=== PATIENT | male | born 1940 | race Caucasian/White ===

== ENCOUNTER → 2017-01-08 | Outpatient (CLI) | payer OTHER ==
[~2017-01-08] MED LIST: REGADENOSON 0.4 MG/5 ML DISP.SYRIN. IV ONE
--- NOTE | 2017-01-08 13:16 | RAD ---
APPROVED REPORT Test Type: Pharmacological Stress Nurse/Tech: Carey Levy R.N. Test Indications: chest pain, fatigue Cardiac History: htn, dm Medications: see ehr Medical History: see ehr Resting ECG: sr Resting Heart Rate: 61 bpm Resting Blood Pressure: 131/56mmHg Pretest Chest Pain: No chest pain Nurse/Tech Notes lungs cta, heart tones regular, good radial pulse Consent: The procedure was explained to the patient in lay terms. Informed consent was witnessed. Manny eout was entered into [employer]. History and Stress Test performed by Carey Levy R.N. Pharm. Details Pharmacologic stress testing was performed using 0.4mg per 5ml of regadenoson given intravenously ove r 7-10 seconds. Stress Symptoms chest pressure, 7/10 throughout recovery, states at end pressure resolved POST EXERCISE Reason for Termination: Infusion complete Max HR: 98 bpm Max Blood Pressure: 131/66mmHg Chest Pain: Yes. Arrhythmia: No. ST Change: No. INTERPRETATION Stress EKG Conclusion: The resting EKG shows a sinus rhythm with an incomplete right bundle bundle br anch block and nonspecific ST segment changes. The stress EKG shows no significant changes from baseline. No EKG evidence of stress-induced ischemia. Imaging Protocol IMAGE PROTOCOL: Rest Tc-99m/stress Tc-99m 1 day Rest: Stress: Viability: Radiopharm.Tc99m [id number] Sestamibi Dose10.4mCi 34mCi Img Date 01/08/2017 01/08/2017 Inj-Img [id number]. 60min. Rest Admin Site:IV - Left AntecubitalAdministrator:Sonia Gentile, RT (R)(N) Stress Admin Site: IV - Left AntecubitalAdministrator: KATERINE Barahona, ARRT (R)(N) STRESS DATA End Diast. Vol.52.0mlAv. Heart Rate73.0bpm End Syst. Vol.5.0mlCO Index BSA0.0L/min Myocardial Cfmv324.0gEject. Ynyyctxm67.0% Stress Rates Pk. Fill Rate2.72EDV/secLVtime Pk. Fill 200.52msec Pk. Empty Rate4.78ESV/secLVtime Pk. Yrgws827.67msec /3 Pk. Fill0.78EDV/sec Stress Scores Regional WT2.00Summed WT9.00 Regional WM0.00Summed WM0.00 LV Perfusion The stress scans showed no significant defects. The rest scans showed no significant defects. Nuclear imaging shows no reversible ischemia or infarct. Wall Motion Normal left ventricular systolic function with an ejection fraction of greater than 70%. LV Perf. Quant 17 Seg. SSS0.00 17 Seg. SRS0.00 17 Seg. SDS0.00 Stress Defect Extent (% LAD)0.00Rest Defect Extent (% LAD)0.00Rev. Defect Extent (% LAD)0.00 Stress Defect Extent (% LCX) 0.00Rest Defect Extent (% LCX)0.00Rev. Defect Extent (% LCX)0.00 Stress Defect Extent (% RCA)0.00Rest Defect Extent (% RCA)0.00Rev. Defect Extent (% RCA)0.00 Stress Defect Extent (% JOSELYN)0.00Rest Defect Extent (% JOSELYN)0.00Rev. Defect Extent (% JOSELYN)0.00 Conclusion 1. No EKG evidence of stress-induced ischemia. 2. Nuclear imaging shows no reversible ischemia or infarct. 3. Normal left ventricular systolic function with an ejection fraction of greater than 70%. 4. Low risk Lexiscan nuclear stress test.
== END | disposition home or self-care (01) ==
LOC: NM 14:48
PROVIDERS: ATTEND Physician Assistant Medical
DX: I10 Essential (primary) hypertension (principal)
CPT/HCPCS: 78452; 93017; 96374; 96375; 96376; A9500; J2785

== ENCOUNTER → 2018-03-03 | Outpatient (CLI) | payer MEDICARE, OTHER | END | disposition home or self-care (01) | LOC: MRI 09:41 | DX: M50.123 Cervical disc disorder at C6-C7 level with radiculopathy (principal) | CPT/HCPCS: 72141 ==

== ENCOUNTER 2020-03-14 23:30 | Inpatient (IN) | payer MEDICARE, OTHER ==
[~2020-03-14] VITALS: Ht 160 cm; Wt 65.2 kg
[2020-03-14 23:35] VITALS: BP 151/85
[2020-03-15] VITALS (8 sets, daily range): BP systolic 146–172; BP diastolic 73–85
[2020-03-15] MEDS: IV NORMAL SALINE 1000ML BAG 1,000 ML IV SCH ×2 (01:28→14:20)
--- NOTE | 2020-03-15 05:00 | NUR ---
ADMIT NOTE The patient, VANESSA GREENBERG SR, 79 y/o, M admitted by MAKRO BARLOW MD, was given written information regarding hospital policies, unit procedures and contact persons. Patient arrived to unit via EMS from [facility] at approximately 2335 on 03/14/20. Patient A&O, afebrile with VSS and no c/o pain on admit to floor. Patient orientated to room, plan of care discussed, and allergies verified. All personal belongings were checked and left in room with patient. Patient now in bed, call light within reach, bed in lowest/locked position and no other needs voiced at this time.
[2020-03-15 05:18] LABS: CALCIUM 8.7 mg/dL (8.5-10.1); CREATININE 0.8 mg/dL (0.7-1.3); GFR 92.8; POTASSIUM 3.3 mmol/L (3.5-5.1)
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
[2020-03-15] MEDS ORDERED: ONDANSETRON PF 4 MG/2 ML VIAL. IVP PRN (08:45)
[2020-03-15] MEDS ORDERED: ACETAMINOPHEN 650 MG SUPP.RECT. PR PRN (08:45)
[2020-03-15] MEDS ORDERED: fentaNYL PF VIAL 100 MCG/2 ML VIAL IVP PRN (08:45)
[2020-03-15] MEDS ORDERED: DEXTROSE 50% 25 GM / 50ML DISP.SYRIN. IV PRN (08:45)
[2020-03-15] MEDS ORDERED: hydrALAZINE 20 MG/ML VIAL. IVP PRN (08:45)
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
[2020-03-15] MEDS: POTASSIUM CHLORIDE 10MEQ 100 ML IV SCH ×2 (09:00→10:46)
[2020-03-15] MEDS ORDERED: FLUTICASONE 50MCG/NASAL SPRAY 16GM BOTTLE. NS SCH (09:00)
[2020-03-15] MEDS ORDERED: ENOXAPARIN 40 MG/0.4 ML SYRINGE. SQ SCH ×2 (09:00→21:00)
--- NOTE | 2020-03-15 09:43 | PDOC4 ---
Operative Note Operative Note EGD with dilation Meds propofol per anesthesia Pre-op dx Dysphagia/hx esophageal stricture Post-op proximal stricture upper esophageal s/p dilation 18 mm dilation non-erosive gastritis Imp Dysphagia- s/p dilation Plan resume diet and release home if tolerates ITZEL DAVENPORT MD Mar 15, 2020 09:43
[2020-03-15] MEDS ORDERED: LEVOTHYROXINE SODIUM IVP ONE (10:00)
[2020-03-15] MEDS ORDERED: IV RINGERS,LACTATED 1000ML 1,000 ML IV SCH (10:00)
[2020-03-15] MEDS ORDERED: NORMAL SALINE IVP ONE (10:00)
--- NOTE | 2020-03-15 10:24 | NUR ---
SW following. Discussed with RN, pt from home with , gets around fine. Pt having a procedure today. RN advised no SW needs at this time. SW will continue to follow for any discharge planning needs. Addendum: 03/15/20 at 1614 by CHRISTA BURTON MICHEAL following. Discussed with RN, pt needing home health, especially for speech therapy. MICHEAL met with pt and pt's at bedside (no isolation precautions at the time), pt does not have a preference for home health provider. Pt choice of vendor form completed. SW awaiting discharge home health orders. Addendum: 03/15/20 at 1634 by CHRISTA BURTON MICHEAL faxed referral to [facility] after confirming they have a speech therapist. Awaiting acceptance decision. RN notified, pt can discharge home.
[2020-03-15] MEDS ORDERED: INSULIN LISPRO 300 UNITS/3 ML VIAL. SQ SCH (11:30)
[2020-03-15] MEDS ORDERED: IPRATROPIUM BROMIDE 0.06% NASAL SPRAY 15ML BOTTLE. NS SCH (12:00)
[2020-03-15] MEDS ORDERED: ACETAMINOPHEN 650 MG/20.3 ML SOLUTION. PEG ONE (13:30)
[2020-03-15] MEDS ORDERED: MAGNESIUM SULFATE 2GM 50 ML IV ONE (13:30)
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
[2020-03-15] MEDS ORDERED: ETAN50PE (16:13)
[2020-03-15] MEDS ORDERED: ALLO300T PO (16:13)
[2020-03-15] MEDS ORDERED: LEVO125T5 PO (16:13)
[2020-03-15] MEDS ORDERED: FENO54TA PO (16:14)
[2020-03-15] MEDS ORDERED: METF10007 PO (16:14)
[2020-03-15] MEDS ORDERED: LISI10TA2 PO (16:14)
[2020-03-15] MEDS ORDERED: GABA300C9 PO (16:14)
[2020-03-15] MEDS ORDERED: IPRA15SP NS (16:15)
[2020-03-15] MEDS ORDERED: FLUT16SP NS (16:15)
--- NOTE | 2020-03-15 16:17 | SNU/HH DC ---
DISCHARGE WITH HOME HEALTH DISCHARGE INFORMATION: Discharge Date: Mar 15, 2020 Final Diagnosis: Esophageal strictures Condition on Discharge: Stable CODE STATUS: Code Status: Full HOME HEALTH: Face to Face: I certify this patient is under my care and that I, or a nurse practitioner or physician's mailing machine assistant working with me, had a face to face encounter that meets the physician face to face encounter requirements with this patient on 03/15/2020. Medical Complications: DJD, DM, Falls, HTN, Other (Inclusion body myositis) RN For Eval/Treatment: Yes Physical Therapy For: Evalulation/Treatment Occupational Therapy For: Evaluation/Treatment Speech Language Pathology For: Evaluation/Treatment Home Health Aide For: Self-care Pt Meets Homebound Status: Unsteady balance w/ amb,, Fatigue w/ amb. POST DISCHARGE ORDERS: Activity Instructions for Disc: No restrictions Weight Bearing Status after Di: No restrictions DIET AFTER DISCHARGE: ADA CHECKS AFTER DISCHARGE: Checks after discharge: Check blood press - daily, Check blood sugar, ac/hs CERTIFICATION STATEMENT: Certification Statement: Certification Statement: Based on the above finding, I certify that this patient is confined to the home and needs intermittent usp care, physical therapy and/or speech therapy, or continues to need occupational therapy.~ This patient is under my care, and I have initiated the establishment of the plan of care.~ This patient will be followed by myself or a community physician who will periodically review the plan of care. Home Meds Active Scripts Fluticasone Propionate (FLUTICASONE PROPIONATE NASAL SPRAY) 16 Gm [place].susp, 2 SPRAY NS DAILY for Rhinitis for 30 Days, #2 SPRAY Prov:DAPHNE KING MD 03/15/20 Ipratropium [place] (IPRATROPIUM BROMIDE) 15 Ml [place], 2 SPRAY NS Q6HRS for Rhinitis for 30 Days, #2 SPRAY Prov:DAPHNE KING MD 03/15/20 Reported Medications Metformin Hcl (METFORMIN HCL) 1,000 Mg Tablet, 1000 MG PO BID for DM2 for 90 Days, #180 03/15/20 Gabapentin (Gabapentin) 300 Mg Capsule, 300 MG PO TID for neuropathy for 90 Days 03/15/20 Fenofibrate (FENOFIBRATE) 54 Mg Tablet, 54 MG PO DAILY for HLD for 30 Days, #30 03/15/20 Lisinopril (LISINOPRIL) 10 Mg Tablet, 15 MG PO DAILY for htn for 90 Days 03/15/20 Levothyroxine Sodium (LEVOTHYROXINE SODIUM) 125 Mcg Tablet, 125 MCG PO DAILY for hypothyroidism for 90 Days, #90 03/15/20 Allopurinol (ALLOPURINOL) 300 Mg Tablet, 300 MG PO DAILY for gout for 30 Days, #30 03/15/20 Etanercept (ENBREL) 50 Mg/1 Ml Pen.injctr 03/15/20 DAPHNE KING MD Mar 15, 2020 16:17
--- NOTE | 2020-03-15 17:08 | NUR ---
Pt. discharged to home, verbalized understanding of discharge instructions. Pt. given post-procedure EGD packet.
[2020-03-16] MEDS ORDERED: PANTOPRAZOLE IV PUSH 40 MG VIAL. IVP SCH (07:30)
== END 2020-03-15 18:30 | disposition home health service (06) | DRG 395 ==
LOC: 4 NORTH 23:30 → UNDOADMIN 23:59
PROVIDERS: ADMIT Internal Medicine; ATTEND Internal Medicine
PROC: 0D718ZZ Dilation of Upper Esophagus, Via Natural or Artificial Opening Endoscopic (ICD-10-PCS; principal; 2020-03-14)
DX: T18.198A Other foreign object in esophagus causing other injury, initial encounter (principal); K22.2 Esophageal obstruction; E03.9 Hypothyroidism, unspecified; G72.41 Inclusion body myositis [IBM]; E11.9 Type 2 diabetes mellitus without complications; K29.70 Gastritis, unspecified, without bleeding; E78.5 Hyperlipidemia, unspecified; E83.42 Hypomagnesemia; E87.6 Hypokalemia; X58.XXXA Exposure to other specified factors, initial encounter; I10 Essential (primary) hypertension; I25.10 Atherosclerotic heart disease of native coronary artery without angina pectoris; J39.8 Other specified diseases of upper respiratory tract; Z82.49 Family history of ischemic heart disease and other diseases of the circulatory system; Z90.49 Acquired absence of other specified parts of digestive tract; Z87.19 Personal history of other diseases of the digestive system; Z98.61 Coronary angioplasty status; Y93.89 Activity, other specified; Y92.89 Other specified places as the place of occurrence of the external cause; Y99.8 Other external cause status; Z88.8 Allergy status to other drugs, medicaments and biological substances; Z79.899 Other long term (current) drug therapy; Z88.2 Allergy status to sulfonamides
CPT/HCPCS: 36415; 43233; 80048; 82962; 83735; J1815; J3475; J3480; J3490; J7030; J7120; G0378

== ENCOUNTER 2020-05-08 09:19 | Inpatient (IN) | payer MEDICARE, OTHER ==
[2020-05-08] VITALS (15 sets, daily range): BP systolic 130–182; BP diastolic 69–88
[~2020-05-08] VITALS: Ht 160 cm; Wt 62.5 kg
[~2020-05-08 09:19] MED LIST changes: +ALLO300T PO; +ETAN50PE; +FENO54TA PO; +FLUT16SP NS; +GABA300C9 PO; +IPRA15SP NS; +LEVO125T5 PO; +LISI10TA2 PO; +METF10007 PO; -REGADENOSON 0.4 MG/5 ML DISP.SYRIN. IV ONE
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
--- NOTE | 2020-05-08 11:34 | HP ---
ADMIT DATE: 05/08/2020 HISTORY OF PRESENT ILLNESS: The patient is an 80-year-old male patient, who presented to the Emergency Room of [facility] for evaluation of moderate headache after hitting the back of his head and injuring his neck. The patient is chronically unsteady on his feet. He had a mechanical fall where he fell backward. The patient states it is not unusual that he would have a fall. No other obvious injuries reported. The patient is diabetic and has prior cardiac history. He was lucid, awake and appropriate. There is no focal deficit or lateralizing sign. He was brought by the emergency medical service personnel for evaluation. He was extensively investigated in the Emergency Room. His CT scan of the head and cervical spine showed that the patient has a small parafalcine subdural hemorrhage. He has also degenerative changes of cervical spine without a definite acute fracture or dislocation; and therefore, Dr. Oneal, the neurosurgeon, was contacted and he recommended admitting him to ICU of [facility] for close monitoring and further evaluation. When I saw him, he continued to complain of pain in the back of his head, but denied any other complaints, in particular denied any blurring of vision, denied any tingling or numbness, denied any lateralizing sign. PAST MEDICAL HISTORY: Significant for coronary artery disease, status post angioplasty, type 2 diabetes, hypothyroidism, hypertension, inclusion body myositis; on Enbrel. PAST SURGICAL HISTORY: Significant for hemorrhoidectomy, colon polyp removal. He has also bilateral cataract extraction, tonsillectomy and adenoidectomy, cholecystectomy, partial colectomy for colonic polyps and ERCP for extraction of common bile duct stones. FAMILY HISTORY: He has 2 brothers, both younger and have heart disease. One older sister of myocardial infarction. One brother, older, of a stroke. His father in his 40's; he does not know the cause of his . His mother at the age of 75 because of complication of severe peripheral vascular disease. SOCIAL HISTORY: He is , has 1 son and 2 daughters. He never smoked. He does not drink alcohol or use any recreational drugs. He is a ; was there from [id number]; however, after that he worked in many other places in [place] as well as in [place], [place]. REVIEW OF SYSTEMS: The patient denied any blurring of vision. He had bilateral cataract extraction, but denied any glaucoma or macular degeneration. He denied any earache, tinnitus, or sensorineural deafness. Denied any nosebleeds, stuffy nose, or postnasal drip. Denied any sore throat, sore tongue, toothache, hoarseness of voice. He did complain of swelling, difficulty swallowing, particularly to solids. He actually was weighing 201 pounds in 2016 and yesterday his weight was down to 139. He denied any nausea, vomiting, diarrhea, or constipation. He denied any hematemesis, melena, or hematochezia. Denied any dysuria, frequency, or hematuria. Denied any chest pain, shortness of breath, orthopnea, or paroxysmal nocturnal dyspnea. Denied any cough, phlegm, or hemoptysis. PHYSICAL EXAMINATION: GENERAL: On arrival to the Emergency Room of [facility], he looked well and was clearly in no apparent respiratory distress, pale, but no jaundice, cyanosis or thyromegaly. No jugular venous distention. No lower limb edema. VITAL SIGNS: His heart rate was 67, blood pressure was 137/74, temperature was 98.4, respiratory rate was 20, and oxygen saturation was 97% on room air. HEAD, EYES, EARS, NOSE, AND THROAT: Showed normocephalic, atraumatic. NECK: Supple. HEART: Showed normal first and second heart sounds. No gallop or murmur. CHEST: Clear to auscultation. No crepitation or rhonchi. ABDOMEN: Distended, soft, nontender. NEUROLOGIC: He was awake, alert; oriented to time, place, and person. All his cranial nerves are intact. EXTREMITIES: He moves extremities without difficulty. LABORATORY DATA: While in the Emergency Room, his lab work showed a white cell count 4200; hemoglobin 11.6; hematocrit 35.7; MCV 94 and platelet count of 115,000. His chemistry showed a serum sodium 143, potassium 4, chloride 107, bicarbonate 26, anion gap of 10, BUN 21, creatinine 1.1, estimated GFR was 64 mL per minute, his glucose 143, calcium was 9. Total bilirubin, AST, ALT, alkaline phosphatase were normal. Total protein 6.6, albumin 3.3. His prothrombin time, INR and aPTT are all normal. Urinalysis essentially unremarkable. He has had a CT scan of the head and cervical spine and CT scan of the head showed that he has left parafalcine small subdural hemorrhage measuring approximately 4-5 mm scattered regions of low density within the white matter, prominence of the ventricles and sulci, which can be seen with age-related volume loss. No midline shift. Suprasellar cistern is not affected. Small fluid in the right maxillary sinuses. His cervical spine CT scan showed degenerative changes throughout the cervical spine with osteophyte formation at the vertebral body endplates as well as uncovertebral facet and hypertrophy with multilevel central canal and neural foraminal stenosis, moderate compression fracture at T3 and T4. This was also present on prior lucent lesion at the skull base adjacent to the cerebellum. This was present on prior as well. Calcified atherosclerosis. A definite acute fracture line is not seen. He has also a 4-mm right upper lung nodule. The patient therefore was transferred to [facility] ICU as per neurosurgeon's recommendation for close monitoring and to repeat his CT scans to assure stability. EDVIN RAMIREZ MD DR: AMANDA/kristi JOB#: [id number] / [id number]
[2020-05-08] MEDS ORDERED: FOLI0.4T2 PO (14:03)
[2020-05-08] MEDS ORDERED: GABA300C18 PO (14:03)
[2020-05-08] MEDS ORDERED: OMEP40CA45 PO (14:03)
[2020-05-08] MEDS ORDERED: AMLO5TAB10 PO (14:11)
[2020-05-08] MEDS ORDERED: CHOL500021 PO (14:11)
[2020-05-08] MEDS ORDERED: ASPI-630 PO (14:11)
[2020-05-08] MEDS ORDERED: ACET500T68 PO (14:11)
--- NOTE | 2020-05-08 16:18 | RAD ---
CT HEAD WITHOUT CONTRAST 05/08/2020 3:50 PM Indication: Reason: F/U SDH / Spl. Instructions: / History: Comparison: CT of the without contrast earlier same day performed at [facility] Procedure: Multidetector CT imaging of the head was performed without the administration of contrast. Findings: The left parafalcine subdural hematoma is essentially unchanged. No significant increase is identified. No new intracranial hemorrhage is identified. No new mass effect or midline shift is seen. The ventricles and basilar cisterns have normal configuration. Mild intracranial vascular calcification noted. No acute osseous changes are seen. IMPRESSION: Grossly stable appearance of small left parafalcine subdural hematoma CT DOSING PQRS STATEMENT: One or more of the following individualized dose reduction techniques were utilized for this examination: 1. Automated exposure control 2. Adjustment of the mA and/or kV according to patient size 3. Use of iterative reconstruction technique Electronically signed by: Keven De La Vega MD (05/08/2020 4:15 PM) [id number]
[2020-05-08] MEDS: metFORMIN 500 MG TABLET PO SCH (18:27)
[2020-05-08] MEDS: IPRATROPIUM BROMIDE 0.06% NASAL SPRAY 15ML BOTTLE. NS SCH ×2 (18:36→23:33)
[2020-05-08] MEDS: GABAPENTIN 300 MG CAPSULE. PO SCH (20:51)
[2020-05-08] MEDS: ACETAMINOPHEN 500 MG TABLET PO PRN (20:51)
--- NOTE | 2020-05-08 23:23 | NUR ---
Notified about high B/P. He wants me to give Amlodipine now and give it 2-3 hrs to take affect.
[2020-05-08] MEDS ORDERED: amLODIPine BESYLATE 5 MG TABLET PO ONE (23:30)
[2020-05-09] VITALS (11 sets, daily range): BP systolic 125–180; BP diastolic 69–85
[2020-05-09 05:59] LABS: HEMATOCRIT 35.6 % (39.0-53.0); HEMOGLOBIN 11.8 g/dL (13.0-17.5); RED BLOOD COUNT 3.85 x10^6/uL (4.30-5.70); RED CELL DISTRIBUTION WIDTH 15.9 % (11.5-14.5); WHITE BLOOD COUNT 4.1 x10^3/uL (4.0-11.0)
[2020-05-09] MEDS: IPRATROPIUM BROMIDE 0.06% NASAL SPRAY 15ML BOTTLE. NS SCH ×3 (06:09→18:00)
[2020-05-09] MEDS: LEVOTHYROXINE 112 MCG TABLET PO SCH (06:09)
[2020-05-09 06:16] LABS: ALBUMIN 3.1 g/dL (3.4-5.0); CALCIUM 8.6 mg/dL (8.5-10.1); CREATININE 0.7 mg/dL (0.7-1.3); POTASSIUM 3.6 mmol/L (3.5-5.1); TOTAL BILIRUBIN 0.2 mg/dL (0.2-1.0); TOTAL PROTEIN 6.2 g/dL (6.4-8.2)
[2020-05-09] MEDS: FENOFIBRATE 54 MG TABLET. PO SCH (08:03)
[2020-05-09] MEDS: CHOLECALCIFEROL (VITAMIN D3) 1,000 UNIT TABLET PO SCH (08:04)
[2020-05-09] MEDS: ALLOPURINOL 300 MG TABLET. PO SCH (08:04)
[2020-05-09] MEDS: metFORMIN 500 MG TABLET PO SCH ×2 (08:04→17:34)
[2020-05-09] MEDS: PANTOPRAZOLE 40 MG TABLET.DR. PO SCH (08:05)
[2020-05-09] MEDS: FLUTICASONE 50MCG/NASAL SPRAY 16GM BOTTLE. NS SCH (08:05)
[2020-05-09] MEDS: GABAPENTIN 300 MG CAPSULE. PO SCH ×3 (08:05→21:00)
[2020-05-09] MEDS: FOLIC ACID 1 MG TABLET. PO SCH (08:05)
[2020-05-09] MEDS: amLODIPine BESYLATE 5 MG TABLET PO SCH (08:05)
[2020-05-09] MEDS ORDERED: ASPIRIN CHEWABLE 81 MG TABLET. PO SCH (09:00)
--- NOTE | 2020-05-09 09:14 | PN ---
DATE: 05/09/2020 SUBJECTIVE: The patient is resting, slightly propped up in his recliner, sleeping comfortably. On questioning him, he denied any complaint. Nursing staff did not voice any concerns that he had an uneventful night. He has had his CT scan repeated yesterday showed that he has stable appearance with small left parafalcine subdural hematoma. All his medication were resumed and he was started also on his regular diet. He seemed to be stable and therefore, the patient will be transferred to the floor. We will start the process of physical and occupational therapy. PHYSICAL EXAMINATION: GENERAL: When I saw him this morning, he looked well and was clearly in no apparent respiratory distress, somewhat pale, no jaundice, cyanosis or thyromegaly. No jugular venous distention or limb edema. VITAL SIGNS: Her heart rate was 65, blood pressure 153/77, temperature was 98.2, respiratory rate was 17 and oxygen saturation was 99%. HEAD, EYES, EARS, NOSE AND THROAT: Normocephalic, atraumatic. NECK: Supple. HEART: Showed normal first and second heart sounds. No gallop or murmur. CHEST: Clear to auscultation. No crepitation or rhonchi. ABDOMEN: Distended, soft, nontender. NEUROLOGIC: He was sleepy, but arousable, responds appropriately. All his cranial nerves are intact. He moves extremities without difficulty, ambulates with assistance. His intake and output are incompletely recorded. LABORATORY DATA: Her lab work this morning showed a white cell count 4000, hemoglobin 12, hematocrit 36, MCV 92, and platelet count of 112,000. His chemistry showed a serum sodium 143, potassium 3.6, chloride 108, bicarbonate 30, anion gap of 5, BUN 15, creatinine 0.7, estimated GFR was 180 mL per minute. His glucose was 91, calcium was 8.6. Total bilirubin, AST, ALT, alkaline phosphatase were normal. Total protein 6.2, albumin 3.1. ASSESSMENT: 1. Fall with resultant supple sign to keep subdural hematoma that has been stable. 2. The patient has multiple other medical problems including: A. Inclusion body myositis. B. Coronary artery disease, status post angioplasty. C. Type 2 diabetes mellitus. D. Hypothyroidism. E. Hypertension. F. Dysphagia. PLAN: To obviously continue with all his medication except aspirin and we will transfer him to the floor, start the process of physical and occupational therapy. EDVIN RAMIREZ MD DR: AMANDA/kristi JOB#: [id number] / [id number]
[2020-05-09] MEDS: ACETAMINOPHEN 500 MG TABLET PO PRN (12:09)
--- NOTE | 2020-05-09 13:23 | NUR ---
SS following for discharge planning. SS reviewed pt chart and discussed with pt RN. Pt is currently on room air. PT/OT ordered. Pt transferring up today. SS will continue to follow for discharge planning.
--- NOTE | 2020-05-09 13:42 | PDOC ---
PROGRESS NOTES Date of Service DATE: 05/09/20 TIME: 13:39 Subjective Subjective up in chair denies headache currently Objective Objective Vital Signs Date Time Temp Pulse Resp B/P (MAP) Pulse Ox O2 Delivery O2 Flow Rate FiO2 05/09/20 11:18 97.6 70 18 154/69 (97) 96 Room Air 97.6 Intake and Output 05/09/20 07:00 Intake Total 270 ml Output Total 2450 ml Balance -2180 ml Intake Oral 270 ml Output Urine Total 2450 ml # Voids 7 # Bowel Movements 1 Physical Exam General: Alert, Oriented X3, Cooperative, No acute distress MUSCULOSKELETAL: Other (NYE) Neuro: Normal speech Plan Plan of Care small left parafalcine subdural hematoma- stable will make arrangements for f/u CT Head in 7 to 10 days d/w RN Comment Review of Relevant I have reviewed the following items lilli (where applicable) has been applied. Labs Laboratory Tests Test 05/09/20 05:10 White Blood Count 4.1 x10^3/uL (4.0-11.0) Red Blood Count 3.85 x10^6/uL (4.30-5.70) Hemoglobin 11.8 g/dL (13.0-17.5) Hematocrit 35.6 % (39.0-53.0) Mean Corpuscular Volume 92 fL (79-100) Mean Corpuscular Hemoglobin 31 pg (25-35) Mean Corpuscular Hemoglobin Concent 33 g/dL (31-37) Red Cell Distribution Width 15.9 % (11.5-14.5) Platelet Count 112 x10^3/uL (140-400) Sodium Level 143 mmol/L (136-145) Potassium Level 3.6 mmol/L (3.5-5.1) Chloride Level 108 mmol/L (98-107) Carbon Dioxide Level 30 mmol/L (21-32) Anion Gap 5 (6-14) Blood Urea Nitrogen 15 mg/dL (8-26) Creatinine 0.7 mg/dL (0.7-1.3) Estimated GFR (Cockcroft-Gault) 108.0 BUN/Creatinine Ratio 21 (6-20) Glucose Level 91 mg/dL (70-99) Calcium Level 8.6 mg/dL (8.5-10.1) Total Bilirubin 0.2 mg/dL (0.2-1.0) Aspartate Amino Transf (AST/SGOT) 27 U/L (15-37) Alanine Aminotransferase (ALT/SGPT) 47 U/L (16-63) Alkaline Phosphatase 64 U/L (46-116) Total Protein 6.2 g/dL (6.4-8.2) Albumin 3.1 g/dL (3.4-5.0) Albumin/Globulin Ratio 1.0 (1.0-1.7) Laboratory Tests Test 05/09/20 05:10 White Blood Count 4.1 x10^3/uL (4.0-11.0) Red Blood Count 3.85 x10^6/uL (4.30-5.70) Hemoglobin 11.8 g/dL (13.0-17.5) Hematocrit 35.6 % (39.0-53.0) Mean Corpuscular Volume 92 fL (79-100) Mean Corpuscular Hemoglobin 31 pg (25-35) Mean Corpuscular Hemoglobin Concent 33 g/dL (31-37) Red Cell Distribution Width 15.9 % (11.5-14.5) Platelet Count 112 x10^3/uL (140-400) Sodium Level 143 mmol/L (136-145) Potassium Level 3.6 mmol/L (3.5-5.1) Chloride Level 108 mmol/L (98-107) Carbon Dioxide Level 30 mmol/L (21-32) Anion Gap 5 (6-14) Blood Urea Nitrogen 15 mg/dL (8-26) Creatinine 0.7 mg/dL (0.7-1.3) Estimated GFR (Cockcroft-Gault) 108.0 BUN/Creatinine Ratio 21 (6-20) Glucose Level 91 mg/dL (70-99) Calcium Level 8.6 mg/dL (8.5-10.1) Total Bilirubin 0.2 mg/dL (0.2-1.0) Aspartate Amino Transf (AST/SGOT) 27 U/L (15-37) Alanine Aminotransferase (ALT/SGPT) 47 U/L (16-63) Alkaline Phosphatase 64 U/L (46-116) Total Protein 6.2 g/dL (6.4-8.2) Albumin 3.1 g/dL (3.4-5.0) Albumin/Globulin Ratio 1.0 (1.0-1.7) Medications Current Medications Acetaminophen (Tylenol) 500 mg PRN Q6HRS PRN PO PAIN Last administered on 05/09/20 12:09; Start 05/08/20 at 18:15 Allopurinol (Zyloprim) 300 mg DAILY PO Last administered on 05/09/20 08:04; Start 05/09/20 at 09:00 Amlodipine Besylate (Norvasc) 5 mg DAILY PO Last administered on 05/09/20at 08:05; Start 05/09/20 at 09:00 Aspirin (Aspirin Chewable) 81 mg DAILY PO ; Start 05/09/20 at 09:00; Stop 05/09/20 at 08:02; Status DC Fenofibrate (Lofibra) 54 mg DAILY PO Last administered on 05/09/20 08:03; Start 05/09/20 at 09:00 Fluticasone Propionate (Flonase) 2 spray DAILY NS Last administered on 05/09/20 08:05; Start 05/09/20 at 09:00 Gabapentin (Neurontin) 300 mg BID92 PO Last administered on 05/09/20 08:05; Start 05/09/20 at 09:00 Gabapentin (Neurontin) 900 mg HS PO Last administered on 05/08/20at 20:51; Start 05/08/20 at 21:00 Ipratropium [place] (Atrovent Nasal) 2 spray Q6HRS NS Last administered on 05/09/20 12:09; Start 05/08/20 at 19:00 Levothyroxine Sodium (Synthroid) 112 mcg DAILY06 PO Last administered on 05/09/20at 06:09; Start 05/09/20 at 06:00 Vitamin D (Vitamin D3) 2,000 unit DAILY PO Last administered on 05/09/20 08:04; Start 05/09/20 at 09:00 Non-Formulary Medication (Etanercept (Enbrel)) 50 unit WEEKLY .ROUTE ; Start 05/15/20 at 09:00; Status UNV Folic Acid (Folic Acid) 1 mg DAILY PO Last administered on 05/09/20at 08:05; S tart 05/09/20 at 09:00 Metformin HCl (Glucophage) 500 mg BIDWMEALS PO Last administered on 8/18/20at 08:04; Start 05/08/20 at 18:30 Pantoprazole Sodium (Protonix) 40 mg DAILYAC PO Last administered on 05/09/20at 08:05; Start 05/09/20 at 07:30 Amlodipine Besylate (Norvasc) 5 mg 1X ONCE PO Last administered on 05/08/20at 23:32; Start 05/08/20 at 23:30; Stop 05/08/20 at 23:31; Status DC Active Scripts Active Fluticasone Propionate Nasal [place] (Fluticasone Propionate) 16 Gm [place].susp 2 [place] NS DAILY 30 Days Ipratropium [place] 15 Ml [place] 2 [place] NS Q6HRS 30 Days Reported Aspirin 81 Mg Tab.chew 1 Tab PO DAILY D3-50 (Cholecalciferol (Vitamin D3)) 50,000 Unit Capsule 2,000 Unit PO DAILY Acetaminophen 500 Mg Tablet 500 Mg PO PRN PRN Amlodipine Besylate 5 Mg Tablet 5 Mg PO DAILY Folic Acid 0.4 Mg Tablet 1 Mg PO DAILY Omeprazole 40 Mg Capsule.dr 1 Cap PO DAILY Gabapentin 300 Mg Capsule 900 Mg PO HS Metformin Hcl 1,000 Mg Tablet 500 Mg PO BID 90 Days Gabapentin 300 Mg Capsule 300 Mg PO BID 90 Days Fenofibrate 54 Mg Tablet 54 Mg PO DAILY 30 Days Levothyroxine Sodium 125 Mcg Tablet 112 Mcg PO DAILY 90 Days Allopurinol 300 Mg Tablet 300 Mg PO DAILY 30 Days Enbrel (Etanercept) 50 Mg/1 Ml Pen.injctr 50 WEEKLY give weekly every Friday Vitals/I & O Vital Sign - Last 24 Hours 05/08/20 05/08/20 05/08/20 05/08/20 14:30 15:30 16:02 16:29 Pulse 68 68 64 B/P (MAP) 156/81 (106) 133/80 (97) 168/78 (108) Pulse Ox 98 98 O2 Delivery Room Air Room Air Room Air Room Air 05/08/20 05/08/20 05/08/20 05/08/20 17:32 18:14 18:24 19:00 Temp 97.9 97.9 Pulse 77 76 Resp 18 B/P (MAP) 151/76 (101) 158/88 (111) 132/69 (90) Pulse Ox 98 97 O2 Delivery Room Air Room Air Room Air 05/08/20 05/08/20 05/08/20 05/08/20 20:00 20:05 21:00 22:00 Temp 98.3 98.3 Pulse 70 72 71 Resp 18 17 17 B/P (MAP) 133/75 (94) 130/71 (90) 160/80 (106) Pulse Ox 97 98 97 O2 Delivery Room Air Room Air Room Air Room Air 05/08/20 05/08/20 05/09/20 05/09/20 23:00 23:32 00:09 01:08 Pulse 86 86 70 Resp 19 17 B/P (MAP) 182/82 (115) 182/82 180/82 (114) Pulse Ox 97 97 O2 Delivery Room Air Room Air Room Air 05/09/20 05/09/20 05/09/20 05/09/20 02:00 03:07 04:13 04:14 Temp 98.2 98.2 Pulse 75 68 67 Resp 18 18 18 B/P (MAP) 167/77 (107) 137/79 (98) 147/81 (103) Pulse Ox 98 97 98 O2 Delivery Room Air Room Air Room Air Room Air 05/09/20 05/09/20 05/09/20 05/09/20 05:11 06:10 07:34 08:05 Pulse 66 62 65 70 Resp 18 17 17 B/P (MAP) 125/69 (87) 131/71 (91) 153/77 (102) 149/98 Pulse Ox 98 97 99 O2 Delivery Room Air Room Air Room Air 05/09/20 05/09/20 08:30 11:18 Temp 97.6 97.6 Pulse 70 Resp 18 B/P (MAP) 154/69 (97) Pulse Ox 96 O2 Delivery Room Air Room Air Intake and Output 05/08/20 05/08/20 05/09/20 15:00 23:00 07:00 Intake Total 150 ml 120 ml Output Total 1550 ml 450 ml 450 ml Balance -1550 ml -300 ml -330 ml Justicifation of Admission Dx: Justifications for Admission: Justification of Admission Dx: Yes DAMIAN PARK MACHINE BURRER May 09, 2020 13:42
[2020-05-10] MEDS: IPRATROPIUM BROMIDE 0.06% NASAL SPRAY 15ML BOTTLE. NS SCH ×2 (00:17→06:12)
[2020-05-10 03:00] VITALS: BP 138/70
[2020-05-10] MEDS: LEVOTHYROXINE 112 MCG TABLET PO SCH (06:11)
[2020-05-10 07:16] VITALS: BP 146/71
[2020-05-10] MEDS: PANTOPRAZOLE 40 MG TABLET.DR. PO SCH (08:41)
[2020-05-10] MEDS: FENOFIBRATE 54 MG TABLET. PO SCH (08:41)
[2020-05-10] MEDS: metFORMIN 500 MG TABLET PO SCH (08:41)
[2020-05-10] MEDS: GABAPENTIN 300 MG CAPSULE. PO SCH ×2 (08:41→08:43)
[2020-05-10] MEDS: CHOLECALCIFEROL (VITAMIN D3) 1,000 UNIT TABLET PO SCH (08:41)
[2020-05-10] MEDS: amLODIPine BESYLATE 5 MG TABLET PO SCH (08:42)
[2020-05-10] MEDS: FLUTICASONE 50MCG/NASAL SPRAY 16GM BOTTLE. NS SCH (08:42)
[2020-05-10] MEDS: FOLIC ACID 1 MG TABLET. PO SCH (08:42)
[2020-05-10] MEDS: ALLOPURINOL 300 MG TABLET. PO SCH (08:42)
[2020-05-10] MEDS ORDERED: FLUT9.9S NS (08:57)
--- NOTE | 2020-05-10 09:03 | SNU/HH DC ---
DISCHARGE WITH HOME HEALTH DISCHARGE INFORMATION: Discharge Date: May 10, 2020 Final Diagnosis: subdural hematoma Inclusion Body Myositis Condition on Discharge: Stable HOME HEALTH: Face to Face: I certify this patient is under my care and that I, or a nurse practitioner or physician's assistant casino shift manager working with me, had a face to face encounter that meets the physician face to face encounter requirements with this patient on 05/10/2020 Medical Complications: Other RN For Eval/Treatment: Yes Physical Therapy For: Evalulation/Treatment Occupational Therapy For: Evaluation/Treatment Pt Meets Homebound Status: Extreme weakness w/ amb. POST DISCHARGE ORDERS: Activity Instructions for Disc: Activity as tolerated Weight Bearing Status after Di: No restrictions DIET AFTER DISCHARGE: ADA CHECKS AFTER DISCHARGE: Checks after discharge: Check blood press - daily, Check blood sugar, ac/hs TREATMENT/EQUIPMENT ORDERS: Adaptive Equipment Issued: None CERTIFICATION STATEMENT: Certification Statement: Certification Statement: Based on the above finding, I certify that this patient is confined to the home and needs intermittent correction care, physical therapy and/or speech therapy, or continues to need occupational therapy.~ This patient is under my care, and I have initiated the establishment of the plan of care.~ This patient will be followed by myself or a community physician who will periodically review the plan of care. Home Meds Active Scripts Fluticasone Propionate (Flonase Allergy Relief) 9.9 Ml [place].susp, 2 SPRAYS NS DAILY for allergy for 30 Days, #1 BOTTLE 5 Refills Prov:EDVIN RAMIREZ MD 05/10/20 Fluticasone Propionate (FLUTICASONE PROPIONATE NASAL SPRAY) 16 Gm [place].susp, 2 SPRAY NS DAILY for Rhinitis for 30 Days, #2 SPRAY Prov:DAPHNE KING MD 03/15/20 Ipratropium [place] (IPRATROPIUM BROMIDE) 15 Ml [place], 2 SPRAY NS Q6HRS for Rhinitis for 30 Days, #2 SPRAY Prov:DAPHNE KING MD 03/15/20 Reported Medications Aspirin (ASPIRIN) 81 Mg Tab.chew, 1 TAB PO DAILY for other, #30 TAB 3 Refills 05/08/20 Cholecalciferol (Vitamin D3) (D3-50) 50,000 Unit Capsule, 2000 UNIT PO DAILY for heart health, CAP 05/08/20 Acetaminophen (ACETAMINOPHEN) 500 Mg Tablet, 500 MG PO PRN PRN for PAIN, TAB 05/08/20 Amlodipine Besylate (AMLODIPINE BESYLATE) 5 Mg Tablet, 5 MG PO DAILY for blood pressure, TAB 05/08/20 Folic Acid (FOLIC ACID) 0.4 Mg Tablet, 1 MG PO DAILY for anemia, TAB 05/08/20 Omeprazole (OMEPRAZOLE) 40 Mg Capsule.dr, 1 CAP PO DAILY for acid reflux, #30 CAP 3 Refills 05/08/20 Gabapentin (GABAPENTIN) 300 Mg Capsule, 900 MG PO HS for NEUROGENIC PAIN, CAP 05/08/20 Metformin Hcl (METFORMIN HCL) 1,000 Mg Tablet, 500 MG PO BID for DM2 for 90 Days, #180 03/15/20 Gabapentin (Gabapentin) 300 Mg Capsule, 300 MG PO BID for neuropathy for 90 Days 03/15/20 Fenofibrate (FENOFIBRATE) 54 Mg Tablet, 54 MG PO DAILY for HLD for 30 Days, #30 03/15/20 Levothyroxine Sodium (LEVOTHYROXINE SODIUM) 125 Mcg Tablet, 112 MCG PO DAILY for hypothyroidism for 90 Days, #90 03/15/20 Allopurinol (ALLOPURINOL) 300 Mg Tablet, 300 MG PO DAILY for gout for 30 Days, #30 03/15/20 Etanercept (ENBREL) 50 Mg/1 Ml Pen.injctr, 50 WEEKLY for arthritis give weekly every Friday03/15/20 EDVIN RAMIREZ MD May 10, 2020 09:03
--- NOTE | 2020-05-10 09:34 | DS ---
DATE OF DISCHARGE: 05/10/2020 HOSPITAL COURSE: The patient was admitted after he fell sustaining a stable small left parafalcine subdural hematoma. He was seen by the neurosurgical team who did not recommend any surgical intervention and therefore, a decision was made to discharge him home to follow up with the neurosurgical team with a CT scan of the head in 7-10 days. PHYSICAL EXAMINATION: GENERAL: When I saw him today, he was sitting in his chair, eating his breakfast comfortably. On questioning him, he denied any complaint. The nursing staff did not voice any concerns that he has an eventful night. When I examined him, he looked well and was clearly in no apparent respiratory distress, pale, but no jaundice, cyanosis or thyromegaly. No jugular venous distention. No limb edema. VITAL SIGNS: His heart rate was 68, blood pressure 146/71, temperature was 97.6, respiratory rate was 21 and oxygen saturation was 94%. HEAD, EYES, EARS, NOSE AND THROAT: Showed normocephalic, atraumatic. NECK: Supple. HEART: Normal first and second heart sounds. No gallop or murmur. CHEST: Clear to auscultation. No crepitation or rhonchi. ABDOMEN: Distended, soft, nontender. NEUROLOGIC: He was awake, alert, responding appropriately. All cranial nerves are intact. He moves extremities without difficulty. His intake was 270, output was 2450. LABORATORY DATA: Showed a white cell count 4100, hemoglobin 12, hematocrit 36, MCV 92, and platelet count of 112,000. His chemistry showed a serum sodium 143, potassium 3.6, chloride 108, bicarbonate 30, anion gap of 5, BUN 15, creatinine 0.7, estimated GFR was 180 mL per minute. His glucose was 91, calcium was 8.6. Total bilirubin, AST, ALT, alkaline phosphatase were normal. His total protein was 6.2, albumin was 3.1. DISCHARGE MEDICATIONS: He was discharged home to continue on Flonase 2 sprays to each nostril once a day, Tylenol 500 mg every 6 hours as needed, allopurinol 300 mg once a day, amlodipine 5 mg once a day, aspirin 81 mg once a day, cholecalciferol/vitamin D 50,000 units, 2000 units once a day, Enbrel 50 mg intramuscular once a week, fenofibrate 54 mg once a day, folic acid 0.4 mg once a day, gabapentin 300 mg capsules twice a day, gabapentin 900 mg at bedtime, ipratropium bromide 2 sprays every 6 hours, levothyroxine sodium 112 mcg once a day, metformin 500 mg twice a day, omeprazole 40 mg once a day. FINAL DISCHARGE DIAGNOSES: 1. Fall with resultant parafalcine subdural hematoma that has been stable as noted on CT scan done at [facility] and a repeat CT scan after 24 hours at [facility]. 2. Other medical problems include an inclusion body myositis for which he is on Enbrel. 3. Coronary artery disease, status post angioplasty and stent deployment. 4. Type 2 diabetes. 5. Hypothyroidism. 6. Hypertension. The patient will be followed in 7-10 days by the neurosurgical team. I would repeat CT scan of the head. EDVIN RAMIREZ MD DR: AMANDA/kristi JOB#: [id number] / [id number]
--- NOTE | 2020-05-10 10:31 | NUR ---
SS following up with discharge planning. SS reviewed pt chart and discussed with pt RN. PT/OT recommended home with home healthcare. Discharge orders received for home healthcare. SS met with pt and discussed discharge planning and home healthcare. Pt agreeable to home healthcare and reported no preference of company. Discharge orders and referral sent to [facility], ; fax [phone]. Pt's RN notified.
[2020-05-10 11:36] VITALS: BP 157/81
[2020-05-10 15:00] VITALS: BP 144/70
--- NOTE | 2020-05-10 17:38 | NUR ---
Discharge Note: DIONICIO COOK,[facility] Discharge instructions and discharge home medications reviewed with Patient and a copy given. All questions have been answered and understanding verbalized. The following instructions and handouts were given: Dr. Oneal's office will call to set up appointment for follow up. Education pertaining to subderal hematoma was discussed and given to patient. Discontinued lines and drains: R fa removed with tip intact. Patient discharged to home with spouse driving patient from [facility] facility.
[2020-05-15] MEDS ORDERED: ETANERCEPT SCH (09:00)
== END 2020-05-10 17:41 | disposition home health service (06) | DRG 86 ==
LOC: 1 WEST ICU 09:19
PROVIDERS: ADMIT Internal Medicine; ATTEND Internal Medicine
DX: S06.5X0A Traumatic subdural hemorrhage without loss of consciousness, initial encounter (principal); E44.0 Moderate protein-calorie malnutrition; E03.9 Hypothyroidism, unspecified; E11.9 Type 2 diabetes mellitus without complications; G72.41 Inclusion body myositis [IBM]; I10 Essential (primary) hypertension; I25.10 Atherosclerotic heart disease of native coronary artery without angina pectoris; R13.10 Dysphagia, unspecified; W18.30XA Fall on same level, unspecified, initial encounter; Y93.89 Activity, other specified; Y92.89 Other specified places as the place of occurrence of the external cause; Y99.8 Other external cause status; Z82.3 Family history of stroke; Z82.49 Family history of ischemic heart disease and other diseases of the circulatory system; Z87.19 Personal history of other diseases of the digestive system; Z98.41 Cataract extraction status, right eye; Z98.42 Cataract extraction status, left eye; Z95.5 Presence of coronary angioplasty implant and graft; Z90.49 Acquired absence of other specified parts of digestive tract; Z68.24 Body mass index [BMI] 24.0-24.9, adult
CPT/HCPCS: 36415; 70450; 80053; 85027; 97116-GP; G0378

== ENCOUNTER → 2020-05-25 | Outpatient (CLI) | payer MEDICARE, OTHER ==
[2020-05-10 15:00] VITALS: BP 144/70
[~2020-05-25] MED LIST changes: +ACET500T68 PO; +AMLO5TAB10 PO; +ASPI-630 PO; +CHOL500021 PO; +FLUT9.9S NS; +FOLI0.4T2 PO; +GABA300C18 PO; +OMEP40CA45 PO
--- NOTE | 2020-05-25 14:13 | RAD ---
CT HEAD WO CONTRAST History:Subdural hematoma Comparison: May 08, 2020. Technique: Noncontrast CT imaging was performed of the head. Exposure: One or more of the following individualized dose reduction techniques were utilized for this examination: 1. Automated exposure control 2. Adjustment of the mA and/or kV according to patient size 3. Use of iterative reconstruction technique. Findings: Previously seen small left parafalcine subdural hematoma is no longer visualized. No new intracranial hemorrhage is identified. There is again mild supratentorial atrophy somewhat greater of the frontal lobes, ventricular size stable and proportionate to the sulcal spaces. There is no new midline shift or intra-axial mass effect. No acute calvarial abnormality is identified. Paranasal sinuses are mostly aerated, minimal patchy ethmoid air cell mucosal thickening. Mastoid air cells are aerated. Impression: 1. Previously seen parafalcine subdural hematoma is no longer visualized. No acute intracranial abnormality is identified. There is mild supratentorial atrophy. Electronically signed by: Sean Santacruz MD (05/25/2020 2:10 PM) [id number]
== END | disposition home or self-care (01) ==
LOC: CT 11:08
PROVIDERS: ATTEND Neurological Surgery
DX: S06.5X0A Traumatic subdural hemorrhage without loss of consciousness, initial encounter (principal); G31.89 Other specified degenerative diseases of nervous system; X58.XXXA Exposure to other specified factors, initial encounter; Y93.89 Activity, other specified; Y92.89 Other specified places as the place of occurrence of the external cause; Y99.8 Other external cause status
CPT/HCPCS: 70450

== ENCOUNTER → 2020-09-20 | Outpatient (CLI) | payer MEDICARE, OTHER ==
[~2020-09-20] MED LIST changes: +AMLO-186 PO; -AMLO5TAB10 PO; -FOLI0.4T2 PO; +FOLI0.4T5 PO; +LISI10TA16 PO; -LISI10TA2 PO; -OMEP40CA45 PO; +OMEP40CA7 PO
--- NOTE | 2020-09-20 14:51 | RAD ---
Ultrasound-guided transrectal prostate fiducial marker placement 09/20/2020 INDICATION: Forthcoming radiation therapy secondary to prostate cancer. + Discussion: The procedure was explained in its entirety to the patient or the patients designated [employer] products sales representative by a member of the treatment team, including a discussion of the risks, benefits and commonly accepted alternatives to the procedure, as well as the expected consequences of no therapy whatsoever. Discussion of the risks included, but was not limited to, those that are most frequent and those that are rare but possibly severe or life-threatening, as well as the possibility of unforeseen complications. Transrectal ultrasound evaluation was used to delineate the borders of the prostate gland. 3 gold fiducial markers were placed under direct ultrasound guidance without complication. Impression: Transrectal, ultrasound-guided placement of fiducial markers into the prostate gland
--- NOTE | 2020-09-20 16:20 | RAD ---
Nuclear medicine whole body bone scan History: Prostate cancer. Comparison: There are no relevant comparison exams. Technique: Examination performed after intravenous administration of 26 mCi Technetium 99m MDP. Imag es of the whole body were obtained in the anterior and posterior projections. Findings: Tracer uptake in the spine is moderately heterogeneous. Multiple levels demonstrate uptake at the cos tovertebral junctions which is probably degenerative. Tracer uptake in ribs is relatively symmetric. There is focal increased tracer uptake in the left of midline upper sacrum. Tracer uptake in the pelvis is otherwise symmetric. Tracer uptake in the extremities is unremarkable. Tracer uptake acromioclavicular, glenohumeral, and sternoclavicular is likely degenerative. Tracer distribution in the soft tissues appears physiologic. Impression: There is focal increased tracer uptake of the left of midline upper sacrum. Uptake could be degenerat roro or due to metastatic disease. Suggest correlation with PSA and cross-sectional imaging. Electronically signed by: Rasta Zee MD (09/20/2020 4:18 PM) [id number]
== END | disposition home or self-care (01) ==
LOC: US 06:25
PROVIDERS: ATTEND Radiology Radiation Oncology
DX: C61 Malignant neoplasm of prostate (principal); Z88.1 Allergy status to other antibiotic agents; Z88.6 Allergy status to analgesic agent; Z88.8 Allergy status to other drugs, medicaments and biological substances
CPT/HCPCS: 55876; 77387; 78306; A9503